=== PATIENT | female | born 1955 | race Caucasian/White ===

== ENCOUNTER → 2016-11-28 | Outpatient (CLI) | payer MEDICAID ==
--- OUTSIDE RECORDS SUMMARY | 2016-11-28 12:54 | XMS REPORT | Continuity of Care Document ---
Author Author [facility] Organization [facility] Address Unknown Phone Unavailable Care Team Providers Care Lead Oracle Developer Name Role Phone PCP Unavailable Source Comments Some departments are not documenting in the electronic medical record. If you do not see the information that you expected, contact Release of Information in the Health Information Management department at [phone] for further assistance in locating additional records.[facility] Active Allergies and Adverse Reactions Not on File Current Medications Not on file Active Problems Not on file Social History Tobacco Use Types Packs/Day Years Used Date Never Assessed Plan of Care Health Maintenance Due Date Last Done Comments Physical (Comprehensive) 1961 Exam Pertussis Vaccine 1965 Tetanus Vaccine 1971 Cervical Cancer Screening 1975 Breast Cancer Screening 1994 Colorectal Cancer 2004 Screening Shingles Vaccine 2014 Influenza Vaccine 06/19/2016 Results from Last 3 Months Not on file
--- NOTE | 2016-11-28 13:27 | Diagnostic Imaging Report ---
PROCEDURE: CT chest without contrast. TECHNIQUE: Multiple contiguous axial images were obtained through the chest without the use of intravenous contrast. INDICATION: Chronic dyspnea, history of restrictive lung disease. COMPARISON: None. DISCUSSION: No focal consolidation or pulmonary nodule. No underlying emphysema or bronchiectasis. Normal heart size. No pleural or pericardial fluid. No pathologically enlarged lymph nodes identified. Suspect diffuse fatty infiltration of the liver. The spleen is enlarged measuring 14.7 cm. No acute osseous abnormality. IMPRESSION: 1. The lungs are well aerated. 2. Fatty infiltration of the liver. 3. Splenomegaly. Dictated by: Dictated on workstation # [id number]
== END ==
LOC: RAD 12:52
PROVIDERS: ATTEND Internal Medicine Critical Care Medicine
DX: J98.4 Other disorders of lung (principal)
CPT/HCPCS: 71250

== ENCOUNTER 2017-02-13 20:30 | Outpatient (CLI) | payer MEDICAID | END 2017-02-14 06:30 | disposition home or self-care (01) | LOC: SLEEP 20:30 | PROVIDERS: ATTEND Nurse Practitioner Family | DX: G47.50 Parasomnia, unspecified (principal); G47.10 Hypersomnia, unspecified | CPT/HCPCS: 95810 ==

== ENCOUNTER → 2017-05-20 | Outpatient (CLI) | payer MEDICAID ==
--- NOTE | 2017-05-20 15:37 | Diagnostic Imaging Report ---
EXAMINATION: PA and lateral views of the chest. INDICATION: Dyspnea. Cough. COMPARISON: There are no prior studies available for comparison. FINDINGS: There are prominent interstitial markings. This may relate to an atypical or viral infection, or alternatively from vascular congestion. The heart size, however, is not enlarged. No effusion or pneumothorax. The mediastinum and tim appear unremarkable. IMPRESSION: There is mild interstitial thickening of uncertain chronicity. This could correlate with atypical or viral infection, or slight vascular congestion. Dictated by: Dictated on workstation # [id number]
== END ==
LOC: RAD 15:11
PROVIDERS: ATTEND Nurse Practitioner Family
DX: R06.00 Dyspnea, unspecified (principal); R05 Cough
CPT/HCPCS: 71020